=== PATIENT | female | born 1970 | race Hispanic/Latino ===

== ENCOUNTER 2022-12-13 13:33 | Emergency (ER) | payer OTHER ==
[~2022-12-13] VITALS: Ht 162.6 cm; Wt 78.5 kg
[2022-12-13 14:15] LABS: BASOPHILS # (AUTO) 0.1 (0.0-0.1); BASOPHILS % 0.4 % (0.0-1.0); EOSINOPHILS # (AUTO) 0.3 (0.0-0.4); EOSINOPHILS % 2.5 % (0.0-6.0); HEMATOCRIT 32.2 % (34.2-44.1); HEMOGLOBIN 10.6 g/dL (12.0-16.0); LYMPHOCYTES # (AUTO) 1.6 (1.0-3.2); LYMPHOCYTES % 11.7 % (18.0-39.1); MEAN CORPUSCULAR HEMOGLOBIN 31.1 pg (28-32); MEAN CORPUSCULAR HGB CONC 32.9 g/dL (31-35); MEAN CORPUSCULAR VOLUME 94.4 fL (81-99); MONOCYTES # (AUTO) 0.9 (0.2-0.8); MONOCYTES % 6.4 % (4.4-11.3); NEUTROPHILS # (AUTO) 10.8 (2.1-6.9); NEUTROPHILS % 78.3 % (38.7-80.0); PLATELET COUNT 370 x10e3/uL (140-360); RED BLOOD COUNT 3.41 x10e6/uL (3.6-5.1); RED CELL DISTRIBUTION WIDTH 17.4 % (11.7-14.4)
[2022-12-13 14:25] LABS: INR 1.25; PROTHROMBIN TIME 16.2 seconds (11.9-14.5)
[2022-12-13 14:26] LABS: PARTIAL THROMBOPLASTIN TIME 30.9 seconds (23.8-35.5)
[2022-12-13 14:33] LABS: ALANINE AMINOTRANSFERASE 59 IU/L (0-55); ALBUMIN 2.4 g/dL (3.5-5.0); ALBUMIN/GLOBULIN RATIO 0.4 (0.8-2.0); ALKALINE PHOSPHATASE 459 IU/L (40-150); ANION GAP 14.6 mmol/L (8-16); BLOOD UREA NITROGEN 10 mg/dL (7-26); BUN/CREATININE RATIO 15 (6-25); CALCIUM 8.7 mg/dL (8.4-10.2); CARBON DIOXIDE 25 mmol/L (22-29); CHLORIDE 97 mmol/L (98-107); CREATINE KINASE 31 IU/L (29-168); CREATININE, SERUM 0.65 mg/dL (0.57-1.11); GLUCOSE 134 mg/dL (74-118); LIPASE 25 U/L (8-78); POTASSIUM 3.6 mmol/L (3.5-5.1); SODIUM 133 mmol/L (136-145)
[2022-12-13] MEDS ORDERED: IOPAMIDOL 370 MG/ML 100 ML INFUS..BTL INJ ONE (15:33)
[2022-12-13] MEDS ORDERED: SODIUM CHLORIDE 0.9% 100 ML ONE (15:33)
[2022-12-13] MEDS ORDERED: NIFEDIPINE ER30 M1 PO (15:38)
[2022-12-13] MEDS ORDERED: ELIQUIS5 MG PO (15:38)
[2022-12-13] MEDS ORDERED: METOPROLOL TART50 MG PO (15:38)
[2022-12-13] MEDS ORDERED: TYLENOL EXTRA500 MG PO (15:38)
== END 2022-12-13 16:28 | disposition other institution (70) ==
LOC: ER 13:56
DX: R20.0 Anesthesia of skin (principal); I63.89 Other cerebral infarction; I10 Essential (primary) hypertension; Z20.822 Contact with and (suspected) exposure to COVID-19; R94.31 Abnormal electrocardiogram [ECG] [EKG]; Z85.05 Personal history of malignant neoplasm of liver; Z85.07 Personal history of malignant neoplasm of pancreas; Z86.718 Personal history of other venous thrombosis and embolism
CPT/HCPCS: 0223U; 36415; 70450; 70496; 80053; 82140; 82550; 82553; 83690; 84484; 85025; 85610; 85730; 93005; 99284; J7050; Q9967